=== PATIENT | male | born 1970 | race Caucasian/White ===

== ENCOUNTER 2016-08-09 00:22 | Emergency (ER) | payer OTHER ==
[~2016-08-09] VITALS: Ht 177.8 cm; Wt 95.3 kg
[2016-08-09 00:44] VITALS: BP 116/49; PULSE 78; RESP 12; TEMP 96.7; O2SAT 97
--- NOTE | 2016-08-09 00:50 | NUR ---
Patient to ER bed 3 to gown for evaluation. Side rails up. Report given to DEZ NGUYEN.
--- NOTE | 2016-08-09 01:00 | NUR ---
Pt presents to ED with c/o lower back pain 04/06, taken motrin 800 with minimal relief. Pt stated that he lifted a generator and felt pain in lower back, gotten progressively worse. A&Ox4, denies SOB or chestpain, denies N/V/D, skin intact, ambulatory, gait stable. Will continue to monitor
--- NOTE | 2016-08-09 01:16 | NUR ---
MD payne at bedside examining pt
[2016-08-09] MEDS ORDERED: DIAZEPAM 10 MG/2 ML DISP.SYRIN IM ONE (01:30)
[2016-08-09] MEDS ORDERED: KETOROLAC TROMETHAMINE 60 MG/2 ML VIAL IM ONE (01:30)
[2016-08-09] MEDS ORDERED: MORPHINE 4 MG/ML INJ. SYRINGE IM ONE (02:00)
[2016-08-09 02:25] VITALS: BP 116/49; PULSE 78; RESP 12; TEMP 96.7; O2SAT 97
--- NOTE | 2016-08-09 02:25 | NUR ---
Patient given written and verbal discharge instructions and verbalizes understanding. ER MD Dr. Camargo discussed with patient the results and treatment provided. Patient in stable condition. ID arm band removed. Rx of Valium, Bolivar 5, and Motrin 800 given. Patient educated on pain management and to follow up with PMD. Pain Scale 3/10. Opportunity for questions provided and answered.
== END 2016-08-09 02:25 | disposition home or self-care (01) ==
LOC: SED 00:22
DX: M54.5 Low back pain (principal)
CPT/HCPCS: 96372; 99284; J1885; J2270; J3360

== ENCOUNTER 2017-10-27 02:37 | Inpatient (IN) | payer OTHER ==
[~2017-10-27] VITALS: Ht 177.8 cm; Wt 101.6 kg
[2017-10-27] VITALS (8 sets, daily range): BP systolic 91–113
[2017-10-27] MEDS ORDERED: MELO15TA13 PO (02:55)
[2017-10-27] MEDS ORDERED: MAG HYDROX/AL HYDROX/SIMETH 30 ML, BELLADONNA ALKALOIDS/PHENOBARB 10 ML, LIDOCAINE VISC... PO ONE ×3 (03:00)
[2017-10-27] MEDS ORDERED: ASPIRIN 325 MG TABLET PO ONE (03:00)
[2017-10-27] MEDS ORDERED: NACL 0.9% 1,000 ML IV ONE (03:00)
[2017-10-27] MEDS ORDERED: ONDANSETRON HCL 4 MG/2 ML VIAL IVP ONE (03:00)
[2017-10-27 03:23] LABS: BASOPHILS # (AUTO) 0.1 K/uL (0.0-0.2); BASOPHILS % (AUTO) 1.2 % (0.0-2.0); EOSINOPHILS # (AUTO) 0.3 K/uL (0.0-0.4); EOSINOPHILS % (AUTO) 3.2 % (0.0-4.0); HEMATOCRIT 37.8 % (36-54); HEMOGLOBIN 12.4 g/dL (14.0-18.0); LYMPHOCYTES # (AUTO) 3.7 K/uL (1.0-5.5); MEAN CORPUSCULAR HEMOGLOBIN 26 pg (27-31); MEAN CORPUSCULAR HGB CONC 33 % (32-36); MEAN CORPUSCULAR VOLUME 80 fL (79.0-98.0); MONOCYTES # (AUTO) 0.6 K/uL (0.0-1.0); MONOCYTES % (AUTO) 7.2 % (1.7-9.3); NEUTROPHILS # (AUTO) 4.2 K/uL (1.8-7.7); NEUTROPHILS % (AUTO) 47.4 % (40.0-70.0); PLATELET COUNT (AUTO) 362 K/uL (130-430); RED BLOOD CELL COUNT(AUTO) 4.73 MIL/uL (4.2-6.2); RED CELL DISTRIBUTION WIDTH 13.9 % (9.0-15.0); WHITE BLOOD COUNT (AUTO) 8.9 K/uL (4.8-10.8)
[2017-10-27 03:25] LABS: ANION GAP 10 (5-15); CALCIUM 8.7 mg/dL (8.4-11.0); CHLORIDE 104 mmol/L (98-107); CREATININE 0.69 mg/dL (0.55-1.30); GLUCOSE 108 mg/dL (70-99); POTASSIUM 3.9 mmol/L (3.5-5.1); SODIUM SERUM 140 mmol/L (136-145); UREA NITROGEN, BLOOD 16 mg/dL (8-21)
[2017-10-27 03:26] LABS: GFR AFRICAN AMERICAN 159 mL/min (>90)
[2017-10-27 03:34] LABS: ALANINE AMINOTRANSFERASE 34 U/L (12-78); ALBUMIN 3.4 g/dL (3.4-4.8); ASPARTATE AMINOTRANSFERASE 25 U/L (10-37); LIPASE 167 U/L (73-393); TOTAL BILIRUBIN 0.2 mg/dL (0.0-1.0)
[2017-10-27 04:10] LABS: BILIRUBIN,URINE NEGATIVE (NEGATIVE); BLOOD, URINE NEGATIVE (NEGATIVE); CLARITY/URINE CLEAR (CLEAR); COLOR,URINE YELLOW (YELLOW); GLUCOSE,URINE NEGATIVE (NEGATIVE); KETONES,URINE NEGATIVE (NEGATIVE); LEUKOCYTE ESTERASE ,URINE TRACE (NEGATIVE); NITRITE, URINE NEGATIVE (NEGATIVE); PROTEIN URINE NEGATIVE (NEGATIVE); UROBILINOGEN,URINE 0.2 (0.2-1.0)
[2017-10-27 04:42] LABS: BACTERIA,URINE FEW /HPF (None Seen); RBC,URINE 0-3 /HPF (0-3)
[2017-10-27] MEDS ORDERED: MORPHINE 4 MG/ML INJ. SYRINGE IVP ONE (04:45)
[2017-10-27] MEDS ORDERED: ACETAMINOPHEN 325 MG TABLET PO PRN (06:00)
[2017-10-27] MEDS ORDERED: HYDROcodone/ACETAMIN 5-325 MG TAB (NORCO/ VICODIN) PO PRN (06:00)
[2017-10-27] MEDS ORDERED: ALBUTEROL SULFATE 0.083% 2.5 MG/3 ML VIAL.NEB INH PRN (06:00)
[2017-10-27] MEDS ORDERED: HYDROcodone/ACETAMIN 10-325 MG TAB PO PRN (06:00)
[2017-10-27] MEDS ORDERED: ONDANSETRON HCL 4 MG/2 ML VIAL IVP PRN (06:00)
[2017-10-27 07:16] LABS: CHOLESTEROL 235 mg/dL (<200); HDL CHOLESTEROL 36 mg/dL (>45); LDL CHOLESTEROL 169 mg/dL (<100); TRIGLYCERIDES 147 mg/dL (30-150)
[2017-10-27] MEDS: ASPIRIN 81 MG TAB.CHEW PO SCH (09:03)
[2017-10-28 08:00] VITALS: BP_SYST 129
[2017-10-28] MEDS: ASPIRIN 81 MG TAB.CHEW PO SCH (10:09)
[2017-10-28 12:34] VITALS: BP_SYST 109
[2017-10-28] MEDS ORDERED: BUSP10TA3 PO (14:04)
[2017-10-28 15:33] VITALS: BP_SYST 105
== END 2017-10-28 16:18 | disposition home or self-care (01) | DRG 313 ==
LOC: SED 02:37 → STU 05:55
PROVIDERS: ADMIT Internal Medicine; ATTEND Internal Medicine
DX: R07.89 Other chest pain (principal); D64.9 Anemia, unspecified; F43.9 Reaction to severe stress, unspecified; E66.9 Obesity, unspecified; F41.9 Anxiety disorder, unspecified; E78.5 Hyperlipidemia, unspecified; Z68.32 Body mass index [BMI] 32.0-32.9, adult; Z80.9 Family history of malignant neoplasm, unspecified
CPT/HCPCS: 36415; 71045; 80053; 80061; 81000-TC; 83690-TC; 84484; 85025; 87086; 93005; 93017; 93306; 96361; 96374; 99285; J2001; J2270; J2405; J7030

== ENCOUNTER 2021-02-17 17:40 | Emergency (ER) | payer BC, SELFPAY ==
[~2021-02-17] VITALS: Ht 167.6 cm; Wt 74.8 kg
[~2021-02-17 17:40] MED LIST: BUSP10TA3 PO; MELO15TA13 PO
[2021-02-17 18:00] VITALS: BP_SYST 107
--- NOTE | 2021-02-17 19:35 | NUR ---
Seen and examined by at the Tent outside.
--- NOTE | 2021-02-17 19:35 | NUR ---
Marta asencio in [facility] - 02/17/21 at 2248 by CHANDLERGS Seen and examined by at the Tent outside.
[2021-02-17] MEDS ORDERED: LevALBUTEROL HCL 1.25 MG/0.5 ML *CONC.* VIAL.NEB (XOPENEX CONC.) INH ONE (19:45)
[2021-02-17] MEDS ORDERED: BENZ-16 PO (20:33)
[2021-02-17] MEDS ORDERED: ALBMDI INH (20:33)
[2021-02-17 22:45] VITALS: BP_SYST 110
--- NOTE | 2021-02-17 22:45 | NUR ---
Patient given written and verbal discharge instructions and verbalizes understanding. ER MD discussed with patient the results and treatment provided. Patient in stable condition. ID arm band removed. Rx of Ventolin HFA and tessalon Perle given. Patient educated to follow up with PMD. Pain Scale 0/10. Opportunity for questions provided and answered. Medication side effect fact sheet provided.
== END 2021-02-17 22:45 | disposition home or self-care (01) ==
LOC: SED 17:40
DX: R05 Cough (principal); R07.81 Pleurodynia; Z79.899 Other long term (current) drug therapy
CPT/HCPCS: 71045; 94640; 99283; J7612

== ENCOUNTER 2021-06-12 22:06 | Emergency (ER) | payer BC, SELFPAY ==
[~2021-06-12] VITALS: Ht 170.2 cm; Wt 74.8 kg
[~2021-06-12 22:06] MED LIST changes: +ALBMDI INH; +BENZ-16 PO
[2021-06-12 22:24] VITALS: BP_SYST 128
[2021-06-12 23:34] LABS: BASOPHILS % (AUTO) 0.2 % (0.0-2.0); EOSINOPHILS # (AUTO) 0.2 K/uL (0.0-0.4); EOSINOPHILS % (AUTO) 1.9 % (0.0-4.0); HEMATOCRIT 44.2 % (36-54); HEMOGLOBIN 14.7 g/dL (14.0-18.0); LYMPHOCYTES # (AUTO) 1.6 K/uL (1.0-5.5); LYMPHOCYTES % (AUTO) 18.7 % (20.5-51.5); MEAN CORPUSCULAR HEMOGLOBIN 29 pg (27-31); MEAN CORPUSCULAR HGB CONC 33 % (32-36); MEAN CORPUSCULAR VOLUME 88 fL (79.0-98.0); MONOCYTES % (AUTO) 11.1 % (1.7-9.3); NEUTROPHILS # (AUTO) 5.8 K/uL (1.8-7.7); NEUTROPHILS % (AUTO) 68.1 % (40.0-70.0); PLATELET COUNT (AUTO) 238 K/uL (130-430); RED BLOOD CELL COUNT(AUTO) 5.05 MIL/uL (4.2-6.2); RED CELL DISTRIBUTION WIDTH 14.7 % (9.0-15.0); WHITE BLOOD COUNT (AUTO) 8.6 K/uL (4.8-10.8)
[2021-06-12 23:36] LABS: CALCIUM 8.8 mg/dL (8.4-11.0); CREATININE 0.82 mg/dL (0.55-1.30); POTASSIUM 3.9 mmol/L (3.5-5.1)
[2021-06-12 23:39] LABS: PROTHROMBIN TIME 10.7 SECS (9.5-12.5)
[2021-06-12 23:42] LABS: ALBUMIN 3.8 g/dL (3.4-4.8); TOTAL BILIRUBIN 2.5 mg/dL (0.0-1.0)
[2021-06-13] MEDS ORDERED: MORPHINE 4 MG INJ. 4 MG/ML VIAL IVP ONE
[2021-06-13] MEDS ORDERED: DIPHENHYDRAMINE INJ 50 MG/ML VIAL IVP ONE
[2021-06-13] MEDS ORDERED: ONDANSETRON HCL 4 MG/2 ML VIAL IVP ONE
[2021-06-13] MEDS ORDERED: NACL 0.9% 1,000 ML IV ONE
[2021-06-13 01:58] VITALS: BP_SYST 100
== END 2021-06-13 01:27 | disposition home or self-care (01) ==
LOC: SED 22:06
DX: K80.10 Calculus of gallbladder with chronic cholecystitis without obstruction (principal); Z79.899 Other long term (current) drug therapy
CPT/HCPCS: 36415; 74176; 76376; 80053; 83690; 85025; 85610; 93005; 96361; 96374; 96375; 99285; J1200; J2270; J2405; J7030

== ENCOUNTER 2021-06-13 18:23 | Inpatient (IN) | payer BC, SELFPAY ==
[~2021-06-13] VITALS: Ht 175.3 cm; Wt 83.9 kg
[2021-06-13] MEDS: NACL 0.9% 1,000 ML IV SCH (00:30)
[2021-06-13 19:07] VITALS: BP_SYST 128
--- NOTE | 2021-06-13 19:10 | NUR ---
ER Dr. Miller at bedside examining patient.
--- NOTE | 2021-06-13 19:10 | NUR ---
Patient BIB by family from home. C/O abdominal pain x 3 days. Patient had abdominal pain since Wednesday, came to ER yesterday, Dx Gall stone. A/O,X4, RUQ abdominal pain, nausea, vomitting , pain rate 10/10.
[2021-06-13] MEDS ORDERED: NACL 0.9% 1,000 ML IV ONE (19:30)
[2021-06-13] MEDS ORDERED: MORPHINE 4 MG INJ. 4 MG/ML VIAL IVP ONE ×2 (19:30→20:30)
[2021-06-13] MEDS ORDERED: ONDANSETRON HCL 4 MG/2 ML VIAL IVP ONE ×2 (19:30→20:30)
--- NOTE | 2021-06-13 19:50 | NUR ---
US at bedside.
[2021-06-13 19:59] LABS: BASOPHILS % (AUTO) 0.5 % (0.0-2.0); EOSINOPHILS # (AUTO) 0.1 K/uL (0.0-0.4); EOSINOPHILS % (AUTO) 0.9 % (0.0-4.0); HEMOGLOBIN 14.9 g/dL (14.0-18.0); LYMPHOCYTES # (AUTO) 0.9 K/uL (1.0-5.5); LYMPHOCYTES % (AUTO) 15.4 % (20.5-51.5); MEAN CORPUSCULAR HEMOGLOBIN 30 pg (27-31); MEAN CORPUSCULAR HGB CONC 34 % (32-36); MEAN CORPUSCULAR VOLUME 87 fL (79.0-98.0); MONOCYTES # (AUTO) 0.5 K/uL (0.0-1.0); MONOCYTES % (AUTO) 7.8 % (1.7-9.3); NEUTROPHILS # (AUTO) 4.4 K/uL (1.8-7.7); NEUTROPHILS % (AUTO) 75.4 % (40.0-70.0); PLATELET COUNT (AUTO) 234 K/uL (130-430); RED BLOOD CELL COUNT(AUTO) 5.05 MIL/uL (4.2-6.2); RED CELL DISTRIBUTION WIDTH 14.8 % (9.0-15.0); WHITE BLOOD COUNT (AUTO) 5.8 K/uL (4.8-10.8)
[2021-06-13 20:32] LABS: CALCIUM 8.5 mg/dL (8.4-11.0); CREATININE 0.65 mg/dL (0.55-1.30); POTASSIUM 3.8 mmol/L (3.5-5.1)
[2021-06-13 20:38] LABS: ALBUMIN 3.7 g/dL (3.4-4.8)
[2021-06-13 20:55] LABS: BILIRUBIN,URINE 2+ (NEGATIVE); CLARITY/URINE CLEAR (CLEAR); GLUCOSE,URINE NEGATIVE (NEGATIVE); KETONES,URINE 2+ (NEGATIVE); LEUKOCYTE ESTERASE ,URINE NEGATIVE (NEGATIVE); NITRITE, URINE NEGATIVE (NEGATIVE); PROTEIN URINE NEGATIVE (NEGATIVE); UROBILINOGEN,URINE 0.2 (0.2-1.0)
[2021-06-13 20:58] LABS: PROTHROMBIN TIME 10.7 SECS (9.5-12.5)
[2021-06-13 21:00] LABS: TOTAL BILIRUBIN 5.2 mg/dL (0.0-1.0)
[2021-06-13 21:05] LABS: BLOOD, URINE TRACE (NEGATIVE); COLOR,URINE AMBER (YELLOW)
[2021-06-13 21:08] LABS: BACTERIA,URINE FEW /HPF (None Seen); MUCUS,URINE None Seen /LPF (None Seen); RBC,URINE NONE SEEN /HPF (0-3); WBC,URINE 0-3 /HPF (0-3)
--- NOTE | 2021-06-13 21:15 | NUR ---
Patient resting quietly. No acute distress noted. Vital signs within normal range. pain rate 2/10
[2021-06-13] MEDS ORDERED: NOREPINEPHRINE BITARTRATE 32 MG in NS 218 ML IV PRN (21:30)
--- NOTE | 2021-06-13 22:30 | NUR ---
AUTH FOR ADMISSION #[id number]
--- NOTE | 2021-06-13 22:32 | NUR ---
Patient's family at bedside.
[2021-06-13] MEDS ORDERED: MORPHINE 2 MG/ML INJ. SYRINGE IVP PRN (23:15)
[2021-06-13] MEDS ORDERED: ONDANSETRON HCL 4 MG/2 ML VIAL IVP PRN (23:15)
[2021-06-13] MEDS ORDERED: KETOROLAC TROMETHAMINE 30 MG VIAL IM PRN (23:15)
--- NOTE | 2021-06-13 23:25 | NUR ---
Patient is sleeping, no acute distress.
--- NOTE | 2021-06-14 01:17 | NUR ---
Patient resting quietly. No acute distress noted. Vital signs within normal range.
--- NOTE | 2021-06-14 02:42 | NUR ---
Patient resting quietly. No acute distress noted. Vital signs within normal range.
--- NOTE | 2021-06-14 03:50 | NUR ---
Patient resting quietly. No acute distress noted. Vital signs within normal range.
--- NOTE | 2021-06-14 05:16 | NUR ---
Patient resting quietly. No acute distress noted. Vital signs within normal range.
--- NOTE | 2021-06-14 07:04 | NUR ---
Report given to DEZ Maddox and endorse care of patient.
--- NOTE | 2021-06-14 07:04 | NUR ---
REPORT RECEIVED FROM DEZ LAZO FOR CONTINUING CARE
--- NOTE | 2021-06-14 07:15 | NUR ---
PT SLEEPING IN BED, EASILY ARROUSABLE TO VOICE, EVEN, UNLABORED RESPIRATIONS, VSS
--- NOTE | 2021-06-14 08:46 | NUR ---
BED ASSIGNMENT RECIEVED MS 117B- NURSE TO CALLBACK FOR REPORT
--- NOTE | 2021-06-14 09:29 | NUR ---
Patient will be admitted to care of DR. ORTIZ. Admitted to MS unit. Will go to room 117B. Belongings list completed. Complete and up to date summary report printed. SBAR report to be given at bedside with opportunity for questions.
--- NOTE | 2021-06-14 09:42 | NUR ---
ADMISSION NOTE Received patient from ER via gurney. Patient admitted with diagnosis of Acute Choledocholithiasis. Patient is awake, alert, oriented X 4. Patient oriented to hospital room, call light, toileting, pain management and safety-teach back done. Patient informed that Ana Garay will be his registered nurse and that their room number is 117B. Personal belongings checked and Belongings List documented. Call light within reach.
[2021-06-14] MEDS: NACL 0.9% 1,000 ML IV SCH (09:58)
--- NOTE | 2021-06-14 10:00 | NUR ---
CONSULTATION PAGED/CALLED Reason for Consultation: ACUTE CHOLEDOCHLITHAISIS Person Who was Notified: SEPTEMBER Consulting Physician: Rancho SERRANO Nurse Informaticist Specialty: GI Ordering Physician: NICHOLAS
[2021-06-14] MEDS ORDERED: guaiFENesin/DEXTROMETHORPHAN 10 ML UDC PO PRN (10:30)
[2021-06-14] MEDS ORDERED: ACETAMINOPHEN 500 MG TABLET PO PRN (10:30)
[2021-06-14] MEDS ORDERED: ZOLPIDEM TARTRATE 5 MG TABLET PO PRN (10:30)
[2021-06-14] MEDS ORDERED: ONDANSETRON HCL 4 MG/2 ML VIAL IVP PRN (10:30)
[2021-06-14] MEDS ORDERED: HYDROcodone/ACETAMIN 7.5-325 MG TAB PO PRN (10:30)
[2021-06-14] MEDS ORDERED: DOCUSATE SODIUM 100 MG/10 ML UDC PO PRN (10:30)
--- NOTE | 2021-06-14 10:33 | NUR ---
SPOKE TO DR. SERRANO: SPOKE TO DR. SERRANO. PER DR. SERRANO, ORDER MRI ABDOMINAL W/ CONTRAST.
[2021-06-14] MEDS: D5NS 1,000 ML IV SCH ×2 (10:41→17:30)
--- NOTE | 2021-06-14 10:48 | NUR ---
CONSULTATION PAGED/CALLED Reason for Consultation: GI Person Who was Notified: PRABHU Consulting Physician: GUDELIA OPEN HEARTH WORKER Metal Cut Off Saw Tender Specialty: GI Ordering Physician: MARLENE
[2021-06-14 11:14] LABS: INR 1.1 (0.80-1.20); PROTHROMBIN TIME 11.5 SECS (9.5-12.5)
[2021-06-14 11:24] LABS: FREE T4 (FREE THYROXINE) 1.1 ng/dl (0.8-1.5); PHOSPHORUS 2.6 mg/dL (2.7-4.5); THYROID STIMULATING HORMONE 0.52 uIu/mL (0.36-3.74)
--- NOTE | 2021-06-14 11:53 | NUR ---
DR. SERRANO MADE ROUNDS/ORDERED LOVENOX: DR. SERRANO MADE ROUNDS AND ORDERED LOVENOX 40 MG SUBCUT 40 MG DAILY AND CLEAR LIQUIDS.
[2021-06-14] MEDS ORDERED: ENOXAPARIN SODIUM 40 MG/0.4 ML SYRINGE SUBCUT ONE (12:00)
[2021-06-14 12:29] VITALS: BP_SYST 117
[2021-06-14 13:56] VITALS: BP_SYST 121
[2021-06-14 16:20] VITALS: BP_SYST 124
[2021-06-14] MEDS: KETOROLAC TROMETHAMINE 30 MG VIAL IVP PRN ×2 (17:39→23:53)
--- NOTE | 2021-06-14 18:59 | NUR ---
CLOSING NOTES: PATIENT RESTING IN BED. NO S/S OF ACUTE DISTRESS NOTED. IV INFUSING WELL. FALL AND SAFETY MEASURES PROVIDED. CALL LIGHT WITHIN REACH.
[2021-06-14 20:00] VITALS: BP_SYST 99
--- NOTE | 2021-06-14 22:50 | NUR ---
Pt Iv site leaking. New 22G Iv placed in left forearm.
--- NOTE | 2021-06-14 23:55 | NUR ---
Pt reporting pain of abdomen, pain meds given, pt resting quietly in bed.
[2021-06-15] VITALS: BP_SYST 117
[2021-06-15] MEDS: KETOROLAC TROMETHAMINE 30 MG VIAL IVP PRN ×2 (02:04→12:29)
[2021-06-15] MEDS: D5NS 1,000 ML IV SCH ×3 (02:10→16:38)
[2021-06-15 07:14] LABS: BASOPHILS % (AUTO) 0.8 % (0.0-2.0); EOSINOPHILS # (AUTO) 0.1 K/uL (0.0-0.4); EOSINOPHILS % (AUTO) 3.3 % (0.0-4.0); HEMATOCRIT 43.1 % (36-54); HEMOGLOBIN 14.4 g/dL (14.0-18.0); LYMPHOCYTES # (AUTO) 1.8 K/uL (1.0-5.5); LYMPHOCYTES % (AUTO) 40.3 % (20.5-51.5); MEAN CORPUSCULAR HEMOGLOBIN 29 pg (27-31); MEAN CORPUSCULAR HGB CONC 33 % (32-36); MEAN CORPUSCULAR VOLUME 88 fL (79.0-98.0); MONOCYTES # (AUTO) 0.4 K/uL (0.0-1.0); MONOCYTES % (AUTO) 9.9 % (1.7-9.3); NEUTROPHILS # (AUTO) 2.1 K/uL (1.8-7.7); NEUTROPHILS % (AUTO) 45.7 % (40.0-70.0); PLATELET COUNT (AUTO) 224 K/uL (130-430); RED BLOOD CELL COUNT(AUTO) 4.93 MIL/uL (4.2-6.2); RED CELL DISTRIBUTION WIDTH 15.4 % (9.0-15.0); WHITE BLOOD COUNT (AUTO) 4.5 K/uL (4.8-10.8)
[2021-06-15 08:01] VITALS: BP_SYST 106
--- NOTE | 2021-06-15 08:09 | NUR ---
OPENING NOTES: PATIENT EATING BREAKFAST. BREATHING EVEN AND NON LABORED TO RA. IV INFUSING WELL. FALL AND SAFETY MEASURES REINFORCED. CALL LIGHT WITHIN REACH.
[2021-06-15 08:23] LABS: CREATININE 0.63 mg/dL (0.55-1.30); POTASSIUM 3.7 mmol/L (3.5-5.1)
[2021-06-15] MEDS ORDERED: POTASSIUM CHLORIDE 20 MEQ TAB.PRT.SR PO PRN (09:00)
[2021-06-15] MEDS: PANTOPRAZOLE SODIUM 40 MG TAB PO SCH (09:25)
[2021-06-15] MEDS: ENOXAPARIN SODIUM 40 MG/0.4 ML SYRINGE SUBCUT SCH (09:25)
[2021-06-15 13:08] VITALS: BP_SYST 122
--- NOTE | 2021-06-15 13:54 | NUR ---
RN NOTES: PATIENT RESTING IN BED. DENIES ANY DISCOMFORT AT THIS TIME. NO S/S OF ACUTE DISTRESS NOTED. CALL LIGHT WITHIN REACH.
[2021-06-15 16:53] VITALS: BP_SYST 120
--- NOTE | 2021-06-15 18:58 | NUR ---
CLOSING NOTES: PATIENT RESTING IN BED. NO S/S OF ACUTE DISTRESS NOTED. IV INFUSING WELL. FALL AND SAFETY MEASURES PROVIDED. CALL LIGHT WITHIN REACH.
--- NOTE | 2021-06-15 19:40 | NUR ---
OPENING NOTE PATIENT RESTING IN BED WATCHING A MOVIE. VITALS TAKEN. PATIENT NOTED TO HAVE PAIN OF 4/10 BUT STATES THAT HE CAN TOLERATE PAIN LEVEL BUT THAT HE WILL CALL IF HE NEEDS PAIN MEDICATION LATER.
[2021-06-15 20:00] VITALS: BP_SYST 110
[2021-06-15] MEDS: MORPHINE 2 MG/ML INJ. SYRINGE IVP PRN (22:16)
--- NOTE | 2021-06-15 22:16 | NUR ---
C/O PAIN; MORPHINE Patient reporting severe pain to abdomen, 02/04. Administered Morphine as ordered; reviewed side effects and patient verbalized understanding.
[2021-06-16] MEDS: D5NS 1,000 ML IV SCH ×3 (00:12→23:00)
--- NOTE | 2021-06-16 00:12 | NUR ---
IVF, v/s VSS, presently denies pain. Hung new bag of IVF and infusing well; tolerating. No further needs and wants lights out and door closed.
[2021-06-16 00:35] VITALS: BP_SYST 131
--- NOTE | 2021-06-16 05:01 | NUR ---
resting Patient resting in bed, no distress. IVF infusing well, no s/sx of infiltration noted. He has no further needs. tm
[2021-06-16 06:59] LABS: BASOPHILS % (AUTO) 0.6 % (0.0-2.0); EOSINOPHILS # (AUTO) 0.2 K/uL (0.0-0.4); EOSINOPHILS % (AUTO) 4.4 % (0.0-4.0); HEMATOCRIT 42.8 % (36-54); HEMOGLOBIN 14.4 g/dL (14.0-18.0); LYMPHOCYTES # (AUTO) 1.7 K/uL (1.0-5.5); LYMPHOCYTES % (AUTO) 37.6 % (20.5-51.5); MEAN CORPUSCULAR HEMOGLOBIN 30 pg (27-31); MEAN CORPUSCULAR HGB CONC 34 % (32-36); MEAN CORPUSCULAR VOLUME 88 fL (79.0-98.0); MONOCYTES # (AUTO) 0.5 K/uL (0.0-1.0); MONOCYTES % (AUTO) 10.5 % (1.7-9.3); NEUTROPHILS # (AUTO) 2.1 K/uL (1.8-7.7); NEUTROPHILS % (AUTO) 46.9 % (40.0-70.0); PLATELET COUNT (AUTO) 230 K/uL (130-430); RED BLOOD CELL COUNT(AUTO) 4.88 MIL/uL (4.2-6.2); RED CELL DISTRIBUTION WIDTH 15.2 % (9.0-15.0); WHITE BLOOD COUNT (AUTO) 4.5 K/uL (4.8-10.8)
[2021-06-16 08:00] VITALS: BP_SYST 130
[2021-06-16 08:17] LABS: BILIRUBIN,DIRECT 3.3 mg/dL (0.0-0.3); CALCIUM 8.2 mg/dL (8.4-11.0); CREATININE 0.69 mg/dL (0.55-1.30); POTASSIUM 3.4 mmol/L (3.5-5.1); TOTAL BILIRUBIN 4.6 mg/dL (0.0-1.0)
--- NOTE | 2021-06-16 09:15 | NUR ---
OPENING NOTES: PATIENT RESTING IN BED. BREATHING EVEN AND NON LABORED TO RA. IV INFUSING WELL. BED LOCKED, ALARM ON AND IN LOWEST POSITION. CALL LIGHT WITHIN REACH.
[2021-06-16] MEDS: PANTOPRAZOLE SODIUM 40 MG TAB PO SCH (09:21)
[2021-06-16] MEDS: ENOXAPARIN SODIUM 40 MG/0.4 ML SYRINGE SUBCUT SCH (09:24)
--- NOTE | 2021-06-16 11:48 | NUR ---
RN NOTES/ PATIENT BROUGHT TO MRI: PATIENT BROUGHT TO MRI. PATIENT IN STABLE CONDITION.
[2021-06-16 12:05] VITALS: BP_SYST 125
[2021-06-16 17:16] VITALS: BP_SYST 124
--- NOTE | 2021-06-16 19:31 | NUR ---
CLOSING NOTES: PATIENT RESTING IN BED. NO S/S OF ACUTE DISTRESS NOTED. IV INFUSING WELL. FALL AND SAFETY MEASURES PROVIDED. CALL LIGHT WITHIN REACH.
[2021-06-16 20:00] VITALS: BP_SYST 113
[2021-06-16] MEDS: MORPHINE 2 MG/ML INJ. SYRINGE IVP PRN (23:41)
--- NOTE | 2021-06-16 23:41 | NUR ---
Morphine Patient reporting severe pain to abdomen, 01/04. Administered Morphine as ordered; reviewed side effects and patient verbalized understanding. Last BM was on 12 am.
[2021-06-17 00:25] VITALS: BP_SYST 105
[2021-06-17 07:37] LABS: BASOPHILS % (AUTO) 0.7 % (0.0-2.0); EOSINOPHILS # (AUTO) 0.2 K/uL (0.0-0.4); EOSINOPHILS % (AUTO) 3.6 % (0.0-4.0); HEMATOCRIT 44.7 % (36-54); HEMOGLOBIN 14.9 g/dL (14.0-18.0); LYMPHOCYTES # (AUTO) 1.9 K/uL (1.0-5.5); LYMPHOCYTES % (AUTO) 37.1 % (20.5-51.5); MEAN CORPUSCULAR HEMOGLOBIN 29 pg (27-31); MEAN CORPUSCULAR HGB CONC 33 % (32-36); MEAN CORPUSCULAR VOLUME 87 fL (79.0-98.0); MONOCYTES # (AUTO) 0.5 K/uL (0.0-1.0); NEUTROPHILS # (AUTO) 2.6 K/uL (1.8-7.7); NEUTROPHILS % (AUTO) 49.6 % (40.0-70.0); PLATELET COUNT (AUTO) 229 K/uL (130-430); RED BLOOD CELL COUNT(AUTO) 5.11 MIL/uL (4.2-6.2); RED CELL DISTRIBUTION WIDTH 15.4 % (9.0-15.0); WHITE BLOOD COUNT (AUTO) 5.2 K/uL (4.8-10.8)
[2021-06-17 07:43] LABS: CALCIUM 8.4 mg/dL (8.4-11.0); CREATININE 0.72 mg/dL (0.55-1.30); POTASSIUM 3.8 mmol/L (3.5-5.1)
[2021-06-17 08:00] VITALS: BP_SYST 118
--- NOTE | 2021-06-17 08:00 | NUR ---
Opening notes: Received patient awake, resting in bed. No distress and nonlabored breathing on room air. Presently denies pain, reports abdominal discomfort though does not want pain med. IVF infusing via IV to LFA, no sign of infiltration noted. Bed is locked on lowest position, side rails up 2x and call light w/in reach. He has been ambulating with steady gait to restroom and does not have bed alarm on.
[2021-06-17] MEDS: PANTOPRAZOLE SODIUM 40 MG TAB PO SCH (09:00)
[2021-06-17] MEDS: ENOXAPARIN SODIUM 40 MG/0.4 ML SYRINGE SUBCUT SCH (09:00)
[2021-06-17] MEDS: D5NS 1,000 ML IV SCH ×2 (11:19→16:45)
--- NOTE | 2021-06-17 12:00 | NUR ---
Lunch rounds: Patient awake, resting in bed. NPO, No distress and nonlabored breathing on room air. Presently denies pain, reports abdominal discomfort though does not want pain med. IVF infusing via IV to LFA, no sign of infiltration noted. Bed is locked on lowest position, side rails up 2x and call light w/in reach. He has been ambulating with steady gait to restroom and does not have bed alarm on.
--- NOTE | 2021-06-17 16:52 | NUR ---
Morning meds: Was holding morning meds until after procedure, since pt is not scheduled for procedure until this evening, I offered to give meds, and pt refuse.
--- NOTE | 2021-06-17 18:59 | NUR ---
Closing notes Patient awake, resting in bed. NPO, No distress and nonlabored breathing on room air. Presently denies pain, reports abdominal discomfort though does not want pain med. IVF infusing via IV to LFA, no sign of infiltration noted. Bed is locked on lowest position, side rails up 2x and call light w/in reach. He has been ambulating with steady gait to restroom and does not have bed alarm on. OR will belt picker pt soon, will endorse to protection manager.
[2021-06-17 20:00] VITALS: BP_SYST 119
[2021-06-18] MEDS: D5NS 1,000 ML IV SCH (06:23)
[2021-06-18 06:52] LABS: BASOPHILS % (AUTO) 0.5 % (0.0-2.0); EOSINOPHILS # (AUTO) 0.1 K/uL (0.0-0.4); EOSINOPHILS % (AUTO) 2.7 % (0.0-4.0); HEMATOCRIT 46.4 % (36-54); HEMOGLOBIN 15.7 g/dL (14.0-18.0); LYMPHOCYTES # (AUTO) 1.9 K/uL (1.0-5.5); LYMPHOCYTES % (AUTO) 34.1 % (20.5-51.5); MEAN CORPUSCULAR HEMOGLOBIN 29 pg (27-31); MEAN CORPUSCULAR HGB CONC 34 % (32-36); MEAN CORPUSCULAR VOLUME 87 fL (79.0-98.0); MONOCYTES # (AUTO) 0.5 K/uL (0.0-1.0); MONOCYTES % (AUTO) 8.4 % (1.7-9.3); NEUTROPHILS % (AUTO) 54.3 % (40.0-70.0); PLATELET COUNT (AUTO) 240 K/uL (130-430); RED BLOOD CELL COUNT(AUTO) 5.34 MIL/uL (4.2-6.2); RED CELL DISTRIBUTION WIDTH 15.1 % (9.0-15.0); WHITE BLOOD COUNT (AUTO) 5.5 K/uL (4.8-10.8)
[2021-06-18 07:45] LABS: CALCIUM 8.8 mg/dL (8.4-11.0); CREATININE 0.67 mg/dL (0.55-1.30); POTASSIUM 3.6 mmol/L (3.5-5.1)
[2021-06-18 08:00] VITALS: BP_SYST 100
--- NOTE | 2021-06-18 08:00 | NUR ---
Opening Notes Patient is awake, alert and oriented x4. No resp distress noted. Breathing is even and unlabored. Pt reports constant abdominal pain, no meds requested at this time. Pt remains NPO at this time. Scheduled surgery with Dr. Carrillo at 1830. IV site on left AC 22 gauge intact D5NS @ 70 cc/hr, infusing well. Pt reports having diarrhea episodes x3. Will report to MD Sanz. All needs met at this time. Safety and fall precautions in place. Bed in lowest position, locked. Will continue to monitor.
[2021-06-18] MEDS: PANTOPRAZOLE SODIUM 40 MG TAB PO SCH (09:00)
[2021-06-18] MEDS: ENOXAPARIN SODIUM 40 MG/0.4 ML SYRINGE SUBCUT SCH (09:00)
--- NOTE | 2021-06-18 10:00 | NUR ---
Notes Patient is sleeping at this time. No resp distress noted. Breathing is even and unlabored. No signs of pain. Will continue to monitor.
--- NOTE | 2021-06-18 11:15 | NUR ---
Patient is being seen and examined by DR MERCADO
--- NOTE | 2021-06-18 12:00 | NUR ---
Notes Patient is sitting up in his chair. No resp distress noted. Breathing is even and unlabored. Pt denies any pain. Remains NPO. Pending surgery.
[2021-06-18 12:36] VITALS: BP_SYST 103
--- NOTE | 2021-06-18 14:00 | NUR ---
Notes Patient is laying in bed and talking on his phone. No needs at this time. No resp distress. Denies any pain at this time. Will continue to monitor.
[2021-06-18 15:56] VITALS: BP_SYST 111
--- NOTE | 2021-06-18 16:00 | NUR ---
Notes Nurse educated patient on skin prep prior to surgery. Pt educated to cleanse self with CHG bath wipes before surgery and he will be given a new gown. Instructed to remove all clothing except gown, including jewelry. Pt verbalizes understanding. Pending surgery at 1830.
--- NOTE | 2021-06-18 18:23 | NUR ---
Closing Notes Patient is awake, alert and oriented x4. No resp distress noted. Breathing is even and unlabored. Pt denies any pain at this time. Pt was able to give self a CHG bath, new gown given. Anesthesiologist, Dr. Stallings by bedside, pending surgery. IV site on left FA 22 gauge, saline locked. IVF: D5NS@ 70 cc/hr, on hold for now. last urine output at 1800. All needs met. Safety and fall precautions in place. Bed in lowest position, alarm on, locked. Will continue to monitor.
[2021-06-18 20:35] VITALS: BP_SYST 112
--- NOTE | 2021-06-18 20:38 | NUR ---
PATIENT PICKED UP BY TWO OR STAFF FOR LAP AAMIR VIA GURNEY. PATIENT IS AWAKE, ALERT AND ORIENTED X4 IN NO ACUTE DISTRESS. PATIENT DENIES ANY ABDOMINAL PAIN AND URINATES BEFORE GOING TO OR. VS FOLLOWS: TEMP. 97.2; 112/73; [place] 72; RR 18; PAIN 0/10.
[2021-06-18] MEDS ORDERED: GLYCOPYRROLATE 0.2 MG/ML VIAL IJ ONE (20:39)
[2021-06-18] MEDS ORDERED: PHENYLEPHRINE HCL 10 MG/ML VIAL (NEOSYNEPHRINE) IV ONE (20:39)
[2021-06-18] MEDS ORDERED: SEVOFLURANE 15 MIN GAS INH ONE (20:39)
[2021-06-18] MEDS ORDERED: HYDROmorphone 2 MG/ML VIAL IVP ONE (20:39)
[2021-06-18] MEDS ORDERED: ePHEDrine sulfate 50 MG/ML VIAL IVP ONE (20:39)
[2021-06-18] MEDS ORDERED: ROCURONIUM BROMIDE 10 MG/ML (ZEMURON) IV ONE (20:39)
[2021-06-18] MEDS ORDERED: NS 100 ML BAG IV ONE (20:39)
[2021-06-18] MEDS ORDERED: LR 1,000 ML IV.SOLN IV ONE (20:39)
[2021-06-18] MEDS ORDERED: METOCLOPRAMIDE HCL 10 MG/2 ML VIAL IVP ONE (20:39)
[2021-06-18] MEDS ORDERED: MIDAZOLAM HCL 5 MG/5 ML VIAL IVP ONE (20:39)
[2021-06-18] MEDS ORDERED: PROPOFOL 200MG/ 20ML VIAL (DIPRIVAN) IV ONE (20:39)
[2021-06-18] MEDS ORDERED: ONDANSETRON HCL 4 MG/2 ML VIAL IVP ONE (20:39)
[2021-06-18] MEDS ORDERED: WATER FOR IRRIGATION,STERILE 1,000 ML IRRIG.SOLN IR ONE (20:39)
[2021-06-18] MEDS ORDERED: NS IRRIG SOLN 1000 ML IR ONE (20:39)
[2021-06-18] MEDS ORDERED: BUPIVACAINE /EPINEPHRINE/PF 0.25% 30 ML VIAL INJ ONE (20:39)
[2021-06-18] MEDS ORDERED: DEXAMETHASONE SOD PHOSPHATE 4 MG/ML VIAL IVP ONE (20:39)
[2021-06-18] MEDS ORDERED: ONDANSETRON HCL 4 MG/2 ML VIAL IVP PRN ×2 (20:45→22:15)
[2021-06-18] MEDS ORDERED: MORPHINE 4 MG INJ. 4 MG/ML VIAL IVP PRN (20:45)
[2021-06-18] MEDS ORDERED: NALOXONE HCL 0.4 MG/ML AMP (NARCAN) IVP PRN ×2 (22:15)
[2021-06-18] MEDS ORDERED: METOCLOPRAMIDE HCL 10 MG/2 ML VIAL IVP PRN (22:15)
[2021-06-18] MEDS ORDERED: HYDROmorphone 2 MG/ML VIAL IVP PRN (22:15)
[2021-06-18] MEDS ORDERED: HYDROmorphone 1 MG/ML INJ. CARTRIDGE IVP PRN (22:15)
[2021-06-18] MEDS ORDERED: HYDROmorphone 2 MG/ML VIAL ONE (22:15)
[2021-06-18] MEDS: HYDROmorphone 1 MG/ML INJ. CARTRIDGE IVP PRN ×2 (22:15→22:29)
[2021-06-18] MEDS ORDERED: fentaNYL CITRATE/PF 100 MCG/2 ML AMP ONE (22:32)
[2021-06-18] MEDS ORDERED: fentaNYL CITRATE/PF 100 MCG/2 ML AMP IVP ONE (22:45)
[2021-06-19] VITALS (7 sets, daily range): BP systolic 104–126
[2021-06-19] MEDS: D5NS 1,000 ML IV SCH ×2 (06:10→14:49)
[2021-06-19 07:15] LABS: BASOPHILS % (AUTO) 0.1 % (0.0-2.0); HEMATOCRIT 43.7 % (36-54); HEMOGLOBIN 14.7 g/dL (14.0-18.0); LYMPHOCYTES # (AUTO) 0.8 K/uL (1.0-5.5); LYMPHOCYTES % (AUTO) 7.9 % (20.5-51.5); MEAN CORPUSCULAR HEMOGLOBIN 29 pg (27-31); MEAN CORPUSCULAR HGB CONC 34 % (32-36); MEAN CORPUSCULAR VOLUME 88 fL (79.0-98.0); MONOCYTES # (AUTO) 0.7 K/uL (0.0-1.0); MONOCYTES % (AUTO) 7.4 % (1.7-9.3); NEUTROPHILS # (AUTO) 8.5 K/uL (1.8-7.7); NEUTROPHILS % (AUTO) 84.6 % (40.0-70.0); PLATELET COUNT (AUTO) 213 K/uL (130-430); RED CELL DISTRIBUTION WIDTH 14.9 % (9.0-15.0)
[2021-06-19 08:41] LABS: CALCIUM 8.5 mg/dL (8.4-11.0); CREATININE 0.68 mg/dL (0.55-1.30); POTASSIUM 3.9 mmol/L (3.5-5.1)
[2021-06-19] MEDS: PANTOPRAZOLE SODIUM 40 MG TAB PO SCH (08:54)
[2021-06-19] MEDS: ENOXAPARIN SODIUM 40 MG/0.4 ML SYRINGE SUBCUT SCH (08:55)
[2021-06-19 11:26] LABS: ALBUMIN 3.1 g/dL (3.4-4.8); BILIRUBIN,DIRECT 0.5 mg/dL (0.0-0.3); TOTAL BILIRUBIN 1.2 mg/dL (0.0-1.0)
[2021-06-19] MEDS: ACETAMINOPHEN/CODEINE 300 MG-30 MG TABLET PO PRN ×3 (12:34→21:36)
--- NOTE | 2021-06-19 18:20 | NUR ---
Note Pt was encouraged all shift to move side to side in bed and sit up on side of bed for meals. Pt did get OOB this afternoon and ambulated to restroom. Pt's IV in left forearm saline locked. Pt was checked on q1' and PRN all shift for needs and care. Pt's bed in low position and bed alarm on all shift. Abdominal (4) Lap sites intact and dry. Pt tolerated Clear liquids dinner well. No N/V noted throughout the shift. Call light within reach.
[2021-06-20] MEDS: ACETAMINOPHEN/CODEINE 300 MG-30 MG TABLET PO PRN ×2 (01:09→06:51)
[2021-06-20 01:30] VITALS: BP_SYST 108
[2021-06-20 07:02] LABS: BASOPHILS % (AUTO) 0.5 % (0.0-2.0); EOSINOPHILS # (AUTO) 0.1 K/uL (0.0-0.4); EOSINOPHILS % (AUTO) 1.1 % (0.0-4.0); HEMATOCRIT 42.6 % (36-54); HEMOGLOBIN 14.2 g/dL (14.0-18.0); LYMPHOCYTES # (AUTO) 2.5 K/uL (1.0-5.5); LYMPHOCYTES % (AUTO) 32.1 % (20.5-51.5); MEAN CORPUSCULAR HEMOGLOBIN 29 pg (27-31); MEAN CORPUSCULAR HGB CONC 33 % (32-36); MEAN CORPUSCULAR VOLUME 88 fL (79.0-98.0); MONOCYTES # (AUTO) 0.9 K/uL (0.0-1.0); MONOCYTES % (AUTO) 11.7 % (1.7-9.3); NEUTROPHILS # (AUTO) 4.2 K/uL (1.8-7.7); NEUTROPHILS % (AUTO) 54.6 % (40.0-70.0); PLATELET COUNT (AUTO) 196 K/uL (130-430); RED BLOOD CELL COUNT(AUTO) 4.87 MIL/uL (4.2-6.2); RED CELL DISTRIBUTION WIDTH 15.2 % (9.0-15.0); WHITE BLOOD COUNT (AUTO) 7.7 K/uL (4.8-10.8)
[2021-06-20 07:39] LABS: ALBUMIN 2.9 g/dL (3.4-4.8); CALCIUM 8.2 mg/dL (8.4-11.0); CREATININE 0.67 mg/dL (0.55-1.30); POTASSIUM 3.6 mmol/L (3.5-5.1); TOTAL BILIRUBIN 1.4 mg/dL (0.0-1.0)
--- NOTE | 2021-06-20 08:38 | NUR ---
PAGED PAGED PRINCE CHISHOLM AT [phone] SPOKE WITH MARIA ISABEL.
--- NOTE | 2021-06-20 08:51 | NUR ---
AWAITING FOR DR SERRANO TO CALL BACK. NO FLATUS YET. PATIENT BURPING AT THIS TIME. TOLERATING CLEAR LIQUID
[2021-06-20 11:27] VITALS: BP_SYST 104
[2021-06-20 12:31] VITALS: BP_SYST 123
--- NOTE | 2021-06-20 12:38 | NUR ---
Nutrition Note and Education RD was consulted by pt's primary RN to provide low-fat MNT. RD met w/ pt at bedside this morning and provided. Please refer to interdisciplinary teaching record for details.
--- NOTE | 2021-06-20 14:00 | NUR ---
PATIENT LEFT IN STABLE CONDITION. SDCH I D BAND REMOVED. DISCHARGE SUMMARY GIVEN TO THE PATIENT. AND FOLLOW UP VISIT WITH DR MAGGIE MORRISON IN TWO WEEKS TIME. NO IV ACCESS NOTED. NO S/S SYMPTOMS OF PAIN NOR DISTRESS NOTED. ABDOMEN HAS BAND AID X 4. DRY AND INTACT. NO BLEEDING NOR DRAINAGE NOTED. VERBALIZED PASSING GAS. ABLE TO EAT LOW FAT DIET AND DIETITIAN MICHELE CAME TO EXPLAINED THE IMPORTANCE OF DIET AND ACTIVITY. AND FOLLOW UP ALSO WITH PRIMARY CARE DOCTOR.
== END 2021-06-20 14:00 | disposition home or self-care (01) | DRG 419 ==
LOC: SED 18:23 → SMU 23:52
PROVIDERS: ADMIT Hospitalist; ATTEND Internal Medicine Hospice and Palliative Medicine
PROC: BF131ZZ Fluoroscopy of Gallbladder and Bile Ducts using Low Osmolar Contrast (ICD-10-PCS; 2021-06-18)
PROC: 0FT44ZZ Resection of Gallbladder, Percutaneous Endoscopic Approach (ICD-10-PCS; principal; 2021-06-18 20:39)
DX: K80.64 Calculus of gallbladder and bile duct with chronic cholecystitis without obstruction (principal); E83.39 Other disorders of phosphorus metabolism; Z20.822 Contact with and (suspected) exposure to COVID-19; E66.9 Obesity, unspecified; Z79.899 Other long term (current) drug therapy
CPT/HCPCS: 36415; 74181; 74300; 76700-TC; 80048; 80053; 80061; 80076; 81000; 82150; 83036; 83605; 83690; 83735; 83880; 84100; 84439; 84443; 84484; 85025; 85610-TC; 85730-TC; 86886; 86900; 86901; 87086; 88304; 93005; 94010; 96361; 96374; 96375; 99285; C1727; J1100; J1170; J1650; J1885; J2250; J2270; J2370; J2405; J2704; J2765; J3010; J3490; J7120; Q9967

== ENCOUNTER 2022-07-17 20:23 | Emergency (ER) | payer BC ==
[~2022-07-17] VITALS: Ht 175.3 cm; Wt 91.6 kg
[2022-07-17 20:33] VITALS: BP_SYST 157
--- NOTE | 2022-07-17 20:39 | NUR ---
COVID/INLFUENZA SWAB COLLECTED AND SENT TO LAB.
--- NOTE | 2022-07-17 20:40 | NUR ---
# 20 gauge angiocath placed to LAC. Use of asceptic technique. Opsite placed over site. Blood return noted. Blood for lab drawn from site. Flushed with 10 cc of normal saline. No evidence of infiltration noted. Patient tolerated well.
[2022-07-17] MEDS ORDERED: IPRATROPIUM/ALBUTEROL SULFATE 3 ML AMPUL.NEB (DUONEB) INH ONE (20:45)
[2022-07-17] MEDS ORDERED: ACETAMINOPHEN 500 MG TABLET PO ONE (21:15)
[2022-07-17] MEDS ORDERED: PSEUDOEPHEDRINE HCL 30 MG TABLET PO ONE (21:15)
[2022-07-17] MEDS ORDERED: guaiFENesin/DEXTROMETHORPHAN 1 EACH TAB.ER.12H PO ONE (21:15)
--- NOTE | 2022-07-17 21:21 | NUR ---
supervisor fish processing obtaining other ordered medications. Ordered po meds not available. Only tylenol available at this time.
[2022-07-17] MEDS ORDERED: PROM5SYR PO (21:32)
[2022-07-17] MEDS ORDERED: PSEU30TA36 PO (21:32)
[2022-07-17] MEDS ORDERED: BENZ100C92 PO (21:32)
[2022-07-17] MEDS ORDERED: GUAI1TBM19 PO (21:32)
[2022-07-17] MEDS ORDERED: PRED20TA PO (21:33)
[2022-07-17] MEDS ORDERED: ALBMDI INH (21:33)
[2022-07-17] MEDS ORDERED: guaiFENesin ER 600 MG TAB ONE (21:35)
--- NOTE | 2022-07-17 21:44 | NUR ---
ER provider aware that sudafed medication is unavailable per lodging house keeper.
[2022-07-17 21:48] VITALS: BP_SYST 90
--- NOTE | 2022-07-17 22:15 | NUR ---
Patient given written and verbal discharge instructions and verbalizes understanding. ER MD discussed with patient the results and treatment provided. Patient in stable condition. ID arm band removed. IV catheter removed intact and dressing applied, no active bleeding. Rx of Albuterol MDI, Benzonatate, Guaifenesin/Dextromethorphan, prednisone, promethazaine hcl/codeine, and pseudoephedrine given. Patient educated on pain management and to follow up with PMD. Opportunity for questions provided and answered.
== END 2022-07-17 22:15 | disposition home or self-care (01) ==
LOC: SED 20:23
DX: J20.9 Acute bronchitis, unspecified (principal); R06.02 Shortness of breath; R05.9 Cough, unspecified; R51.9 Headache, unspecified; Z79.899 Other long term (current) drug therapy; Z20.822 Contact with and (suspected) exposure to COVID-19
CPT/HCPCS: 36415; 71046-TC; 94640; 99284

== ENCOUNTER 2022-11-19 22:14 | Emergency (ER) | payer BC ==
[~2022-11-19] VITALS: Ht 175.3 cm; Wt 90.7 kg
[~2022-11-19 22:14] MED LIST changes: +BENZ100C92 PO; +GUAI1TBM19 PO; +PRED20TA PO; +PROM5SYR PO; +PSEU30TA36 PO
[2022-11-19 22:35] VITALS: BP_SYST 109
[2022-11-20] MEDS ORDERED: MORPHINE 4 MG INJ. 4 MG/ML VIAL IM ONE (00:45)
[2022-11-20] MEDS ORDERED: HYDR-3917 PO (00:46)
[2022-11-20] MEDS ORDERED: IBUP-1971 PO (00:46)
[2022-11-20 01:21] VITALS: BP_SYST 143
== END 2022-11-20 01:21 | disposition home or self-care (01) ==
LOC: SED 22:14
DX: M25.561 Pain in right knee (principal); J40 Bronchitis, not specified as acute or chronic; Z79.899 Other long term (current) drug therapy
CPT/HCPCS: 99283; 29505; 73564; 96372; J2270